=== PATIENT | female | born 1975 | race Caucasian/White ===

== ENCOUNTER 2016-07-22 14:17 | Emergency (ER) | payer MEDICAID ==
[~2016-07-22 14:17] MED LIST: ACCUNEB DP1.25 MG/3; AUGMENTIN875 MG PO; DELTASONE DPS10 MG PO; DELTASONE DPS20 MG PO; DULERA 200/58.8 GM IH; DUONEB DPS3 ML IH; HABITROL DPS21 MG TD; LEVAQUIN DPS750 MG PO; MONTELUKAST SOD10 MG PO; MOTRIN-DPS600 MG PO; MS CONTIN DPS30 MG PO; NORCO 5-325 TA1 EACH PO; PROVENTIL HFA6.7 GM IH; PROVENTIL2.5 MG/0.5 IH; SPIRIVA18 MCG IH; TYLENOL DPS325 MG PO; ZITHROMAX500 MG PO; ZOFRAN4 MG PO
--- NOTE | 2016-08-09 15:00 | ER ---
ADMIT: 07/22/2016 RM/LOC: ER [facility] MR#: [id number] [id number] SHELLIE MARRUFO [address] [place] [address] Emergency Room Report SEX: F AGE: 41 : 1975 DATE: 07/22/2016 ADDENDUM: This patient comes to the ER because she is having severe asthma attack. She has had difficulty breathing for the last 2 days. She has been using inhalers. It is not working for her. She also has a migraine headache. On physical exam, she is very tight and does not have a lot of movement with deep breath. She was given a total of 3 DuoNeb treatments here, Decadron, and eventually received 0.3 of epinephrine, which did help her to feel better. I wrote a prescription for Z-Fuad and for Decadron, and she was given Decadron 15 mg IM here. She is to follow up with her primary and stop smoking. DIAGNOSIS: Exacerbation of asthma. ISAMAR Lombardi / Pérez Pinzon MD / [place] JOB #: [id number] CC: Pérez Pinzon MD, Attending Physician Sandra Fang MD, Family Physician
== END 2016-07-22 17:00 | disposition home or self-care (01) ==
LOC: ER 14:17
DX: J45.901 Unspecified asthma with (acute) exacerbation (principal); G43.909 Migraine, unspecified, not intractable, without status migrainosus; F17.200 Nicotine dependence, unspecified, uncomplicated; Z79.899 Other long term (current) drug therapy; Z90.81 Acquired absence of spleen